=== PATIENT | male | born 1995 | race Caucasian/White ===

== ENCOUNTER 2019-09-01 03:33 | Emergency (ER) | payer BC, OTHER ==
[~2019-09-01] VITALS: Ht 170.2 cm; Wt 72.1 kg
[2019-09-01] MEDS ORDERED: B6 (03:53)
[2019-09-01] MEDS ORDERED: B12 ACTIVE1000 MCG (03:54)
[2019-09-01] MEDS ORDERED: MULTIVITAMINS1 EAC7 PO (03:54)
[2019-09-01] MEDS ORDERED: PROVIGIL 100 M100 MG (03:55)
[2019-09-01 04:33] LABS: HEMATOCRIT 48.5 % (42.0-52.0); HEMOGLOBIN 16.4 gm/dL (14.0-18.0); MCH 30.5 pg (26.0-34.0); MCHC 33.8 g/dL (28.0-37.0); MCV 90.1 fL (80.0-100.0); RBC 5.38 mil/uL (4.50-6.00); RDW 12.2 % (10.5-14.5); WBC 5.4 thou/uL (4.0-11.0)
[2019-09-01 04:46] LABS: URINE BILIRUBIN NEGATIVE (Negative); URINE BLOOD NEGATIVE (Negative); URINE CLARITY CLEAR; URINE COLOR YELLOW; URINE GLUCOSE-RANDOM* NEGATIVE (Negative); URINE KETONES NEGATIVE (Negative); URINE LEUKOCYTES-REFLEX NEGATIVE (Negative); URINE NITRITE-REFLEX NEGATIVE (Negative); URINE PROTEIN (DIPSTICK) NEGATIVE (Negative); URINE UROBILINOGEN 0.2 E.U./dl (0.2-1.0)
[2019-09-01 04:57] LABS: AMP/METHAMP Negative (Negative); BARBITURATES Negative (Negative); BENZODIAZEPINES Negative (Negative); COCAINE Negative (Negative); METHADONE Negative (Negative); OPIATES Negative (Negative); PCP Negative (Negative)
[2019-09-01 05:00] LABS: ANION GAP 13 mmol/L (7-16); BUN 12 mg/dL (7-18); CALCIUM 8.4 mg/dL (8.5-10.1); CHLORIDE 106 mmol/L (98-107); CO2 24 mmol/L (21-32); GLUCOSE 104 mg/dL (74-106); POTASSIUM 3.3 mmol/L (3.5-5.1); SODIUM 143 mmol/L (136-145)
[2019-09-01 05:06] LABS: SALICYLATE < 2.8 mg/dL (2.8-20.0)
--- NOTE | 2019-09-01 12:34 | EKG ---
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
[2019-09-01 12:38] VITALS: BP 115/72
[2019-09-03 19:08] LABS: TRICYCLIC (TCA) CONFIRMATION Positive ng/mL (Cutoff=100)
== END 2019-09-01 12:39 | disposition home or self-care (01) ==
LOC: ER 03:33
PROVIDERS: Emergency Medicine
DX: F10.121 Alcohol abuse with intoxication delirium (principal); R41.82 Altered mental status, unspecified; Z91.010 Allergy to peanuts; Y90.8 Blood alcohol level of 240 mg/100 ml or more